=== PATIENT | male | born 1955 | race Caucasian/White ===

== ENCOUNTER → 2022-02-17 14:32 | Outpatient (BNVA) | payer OTHER, SELFPAY | PROVIDERS: Family Provider Family Medicine; PCP Family Medicine; Visit Provider Emergency Medicine | DX: J11.1 Influenza due to unidentified influenza virus with other respiratory manifestations (principal); J18.9 Pneumonia, unspecified organism | CPT/HCPCS: 87400 ==

== ENCOUNTER → 2022-09-17 08:11 | Outpatient (BNVA) | payer MEDICARE, SELFPAY | PROVIDERS: Family Provider Family Medicine; PCP Family Medicine; Referring Provider Dermatology; Visit Provider Specialist | DX: M16.12 Unilateral primary osteoarthritis, left hip (principal) | CPT/HCPCS: 73502; 99204 ==

== ENCOUNTER 2022-10-02 06:43 | Outpatient (CLI) | payer MEDICARE, SELFPAY ==
--- NOTE | 2022-10-02 07:15 | MR_ITS ---
WS: [id number] EXAMINATION: MR hip LT wo con* [id number] ORDER DATE: 10/02/2022 7:17 AM COMPARISON: None. HISTORY: left hip pain CONTRAST: None. TECHNIQUE: Coronal STIR of the Pelvis. Coronal proton density, coronal T1, axial T2 fat sat, axial T1 , sagittal T2 fat sat, and sagittal T1 performed of the hip. FINDINGS: Advanced osteoarthritis LEFT hip with oufk-zz-xaib articulation. Subchondral edema involving the LEFT acetabulum and LEFT femoral head with subchondral cystic change. Xlou-ox-vsha articulation. Associat ed subchondral sclerosis. No evidence of avascular necrosis or femoral head collapse. No significant joint effusion. Trace fluid in the LEFT trochanteric bursa. Normal visualized pubic rami. Moderate degenerative arthritis RIGHT hip. No significant edema in the RIGHT femoral head or acetabulum. Small amount of fluid in the RIGHT iliopsoas bursa. Degenerative arthritis LEFT sacroiliac joint with a small amount of periarticular edema. MR/MR hip LT wo con* [id number] IMPRESSION: 1. Advanced degenerative arthritis LEFT hip with rktn-ns-vuhl articulation and subchondral sclerosis. 2. Subchondral cystic change involving the LEFT femoral head and acetabulum w ith associated edema. 3. Moderate degenerative narrowing RIGHT hip. Fluid in the RIGHT iliopsoas bur sa. 4. Small amount of degenerative edema adjacent to the LEFT sacroiliac joint. 5. No other acute findings.
== END 2022-10-02 06:44 | disposition home or self-care (01) ==
LOC: RAD 06:47
PROVIDERS: PCP Family Medicine; Visit Provider Specialist
DX: M25.552 Pain in left hip (principal); M16.12 Unilateral primary osteoarthritis, left hip
CPT/HCPCS: 73721

== ENCOUNTER → 2022-10-29 09:25 | Outpatient (BNVA) | payer MEDICARE, SELFPAY | PROVIDERS: PCP Family Medicine; Visit Provider Specialist | DX: Z01.818 Encounter for other preprocedural examination (principal); M16.12 Unilateral primary osteoarthritis, left hip | CPT/HCPCS: 99214 ==

== ENCOUNTER → 2022-11-18 09:40 | Outpatient (BNVA) | payer MEDICARE, SELFPAY | PROVIDERS: PCP Family Medicine; Visit Provider Clinical Nurse Specialist Adult Health | DX: Z01.818 Encounter for other preprocedural examination (principal); Z86.39 Personal history of other endocrine, nutritional and metabolic disease; M16.12 Unilateral primary osteoarthritis, left hip | CPT/HCPCS: 80053; 81000; 85025 ==

== ENCOUNTER → 2022-11-19 14:54 | Outpatient (BNVA) | payer MEDICARE, SELFPAY | PROVIDERS: PCP Family Medicine; Visit Provider Specialist | DX: M16.12 Unilateral primary osteoarthritis, left hip (principal) | CPT/HCPCS: 99214 ==

== ENCOUNTER 2022-12-02 15:21 | Observation (INO) | payer MEDICARE, SELFPAY ==
[2022-12-01 10:29] VITALS: BMI 25.8
[2022-12-02] VITALS (39 sets, daily range): BP systolic 83–149; BP diastolic 39–89; PULSE 57–91; RESP 10–24; TEMP 36.1–36.6; O2SAT 90–100
[2022-12-02] MEDS: sodium chloride 0.9% 1,000 ML 30 ML IV (10:45)
[2022-12-02] MEDS: acetaminophen 1,000 MG/100 ML PIGGYBACK 400 MG IV (10:45)
[2022-12-02] MEDS: CELEcoxib 200 mg Capsule 400 MG PO (10:46)
[2022-12-02] MEDS: gabapentin 300 mg Capsule PO (10:46)
--- NOTE | 2022-12-02 12:28 | ANES.PREANE2 ---
Pre-Anesthetic Assessment Height/Weight: Height 1.75 m Weight 79.379 kg Temp Pulse Resp BP Pulse Ox O2 Del Method 97 F L 62 18 149/89 97 Room Air 12/02/22 10:35 12/02/22 10:35 12/02/22 10:35 12/02/22 10:35 12/02/22 10:35 12/02/22 10:38 Operation Date: 12/02/22 11:10 Proposed Procedures p LEFT TOTAL HIP ARTHROPLASTY 98938,M16.9(Left) - Flor Doyle MD Familial anesthetic complications: none Was Beta Donald taken within 24 hours: N/A Was Clonidine taken within 24 hours: N/A Last intake: Intake Last Liquid Date 12/01/22 Last Liquid Time 23:30 Last Solid Date 12/01/22 Last Solid Time 21:00 Social No alcohol and No tobacco Exam alert, oriented x 3, clear to auscultation bilaterally and regular rate & rhythm Airway Submandibular: within normal limits Cervical ROM: within normal limits Mallampati: Class II Dentition: chipped Metabolic Hyperlipidemia Musc/sk Osteoarthritis/DJD Anesthetic Plan ASA status: 2 Anesthesia: Regional (specify below) (SAB) Medications/Allergies Home Medications Medication Instructions Recorded Confirmed Last Taken Type meloxicam 15 mg tablet 15 mg PO DAILY #30 tabs 10/29/22 12/01/22 11/24/22 Rx Allergies Allergy/AdvReac Type Severity Reaction Status Date / Time No Known Allergies Allergy Verified 11/19/22 15:09 Current Medications Generic Name Dose Route Start Last Admin Trade Name Freq PRN Reason Stop Dose Admin Sodium Chloride 1,000 mls @ 30 mls/hr 12/02/22 10:30 12/02/22 10:45 Sodium Chloride 0.9% IV 12/03/22 10:29 30 mls/hr .Q24H ANDREA Administration PFSH Anesthesia Medical History Hx of hyperlipidemia hx in past with red meat consumption but it improved when he changed his diet. Surgical History Hx of shoulder surgery left and right Hx of wisdom tooth extraction Family History Denies family history of Clotting disorder Anesthesia complication Bleeding disorder Social History Smoking and tobacco status: former smoker Quit status (tobacco): has quit using tobacco Former quit date comment: quit in his 20s Alcohol intake: current Alcohol intake frequency: holidays/special occasions only Data Anesthesia Cardiac Studies: No Data to Display
--- NOTE | 2022-12-02 12:35 | W.PM.OPSUD ---
Surgery/Procedure H&P Update DATE OF PROCEDURE: December 02, 2022 DATE H&P PERFORMED: 11/18/22 H&P UPDATE INFORMATION: I have reviewed H&P completed within last 30 days, I have examined patient prior to procedure, No changes to prior documentation and H&P is in [facility] on date indicated PLANNED PROCEDURE: Operation Date: 12/02/22 11:10 Proposed Procedures p LEFT TOTAL HIP ARTHROPLASTY 94040,M16.9(Left) - Flor Doyle MD Related Problem List Diagnoses (1) Primary osteoarthritis of left hip:
[2022-12-02] MEDS: ceFAZolin 2,000 MG in sodium chloride 0.9% (plus) 50 ML 100 MG IV ×2 (12:41→20:27)
[2022-12-02] MEDS: vancomycin 1,000 MG SDV 1000 MG INTRA-ARTI (13:38)
[2022-12-02] MEDS: ceFAZolin 1,000 mg SDV 1000 MG IRRIGATION (13:38)
--- NOTE | 2022-12-02 15:38 | XR_ITS ---
WS: [id number] Exam: XR pelvis 1-2V* [id number] Date/Time of Exam: 12/02/2022 3:48 PM Reason For Exam: S/P NANDA Comparison 09/17/2022. A total of the LEFT hip prosthesis is noted. Postoperative changes in the adjacent soft tissues. IMPRESSION: 1. LEFT total hip replacement.
--- NOTE | 2022-12-02 16:02 | ANE.PACU2 ---
Inpatient post-anesthesia follow up: Airway intact: Yes Vital signs: Temperature 97 F Pulse Rate 62 Respiratory Rate 18 Blood Pressure 149/89 Pulse Oximetry 97 Oxygen Delivery Me thod Room Air Oxygen Flow Rate Fraction of Inspir ed Oxygen Hydration adequate: Yes Nausea and vomiting: No Pain level: 3 Mental status: Baseline
[2022-12-02] MEDS: fentaNYL 50 mcg/mL INJ 2mL IVP (16:05)
--- NOTE | 2022-12-02 16:08 | PM.OP ---
Operative Report Date of procedure: December 02, 2022 Pre-op diagnosis: Severe degenerative osteoarthritis of the left hip Post-op diagnosis: Severe degenerative osteoarthritis of the left hip Post-op findings: Severe degenerative osteoarthritis with large labrum, significant joint fluid, and deformity of the femoral head. Procedure done: Left total hip arthroplasty Implants: The [place] total hip system with a size 52 mm by E alpha code Trident II Tritanium acetabular shell with an MDM liner size 42 mm inner diameter by E alpha code.? A size 6 Accolade II 127? neck angle hip stem with a size 28 mm x +0 mm femoral head and a mu-ism MDM X3 insert size 42E Specimens removed/disposition: Femoral head, disposed of Surgeon: Flor Doyle MD Subsystems Engineer: [facility] operating room technicians Anesthesia: Spinal (With MAC, ASA 2) Estimated blood loss (mL): 200 IV fluids (mL): 1,500 Urine output (mL): 300 Complications: None Findings: Severe degenerative osteoarthritis with large labrum, significant joint fluid, and deformity of the femoral head. Condition: stable Disposition: PACU (Then return to floor for postoperative rehabilitation and pain management) Brief History: This 67 year old male patient presents today for same-day left total hip arthroplasty. He states his pain is constant daily. He explains he is unable to perform activities of daily living that he used to be able to perform. He states he is unable to ambulate up or down steps. He states he is unable to ambulate long distances. He explains his pain prevents him from laying flat in bed, and he states he has to sleep in a chair. He points to his groin area as to where his pain is located. He denies any prior treatment for his left hip. While in the office, questions were answered and consents were signed for left total hip arthroplasty. Procedure: Patient was brought to the operating theater.? He was transferred to the operating room table and subsequently administered a spinal anesthesia with MAC, ASA 2.? Following administration of adequate anesthesia, the patient was placed in full lateral position and held in position with a pegboard.? The patient's left lower extremity was then prepped and draped in usual fashion utilizing DuraPrep.? It was draped free.? Following prepping and draping, a surgical pause was performed.? At the time of surgical pause, we identified the site and side of surgery.? We also identified the patient and preoperative surgical markings.?Confirmation was made of equipment availability.? Additionally, the patient's preoperative IV antibiotic, Ancef 2 g, and TXA administration was confirmed as well.? X-rays were also reviewed. Following the surgical pause, an incision was made centering over the patient's greater trochanter continuing proximally and distally as necessary to allow access to the hip joint.? Dissection continued through skin and soft tissues using a scalpel, and hemostasis was obtained using electrocautery. The tensor fascia glo was identified and incised longitudinally but there was minimal fascial component to the tensor tissues.? Sciatic nerve was identified and protected throughout the surgical procedure.? A Charnley U retractor was placed after the tensor fascia glo had been incised longitudinally, and the sciatic nerve had been identified.? The hip was internally rotated, and the piriformis muscle was identified and tagged. Piriformis muscle along with the remaining short external rotators were then incised from the posterior aspect of the hip joint.? These were retracted posteriorly.? The capsule was entered in a T-type fashion with the edges being tagged, and subsequently the hip was dislocated.? There was very thickened labrum as well.? This was excised with further excision accomplished once the femoral head was removed.? Following hip dislocation, a femoral neck osteotomy was accomplished in the appropriate position.? The head was measured, but it was quite deformed.? Subsequently, it was disposed of.? We then evaluated the acetabulum. The femur was retracted anteriorly.? Soft tissues were retracted, and the labrum was removed.? We then began reaming.? Once the femoral head was removed, there was noted to be significant loss of cartilage over the head with the previously noted deformity and within the acetabulum.? We reamed to a size 51 to allow for a size 52 acetabular shell.? The acetabulum was impacted into position.? The MDM liner was then impacted into position with care being taken to assure it seated appropriately.? It was noted that the acetabulum matched the bony anatomy.? The cup was noted to seat nicely and had good fixation upon impact. Attention was directed to the proximal femur.? The proximal femur was lifted out of the wound.? A canal finder was passed after the box chisel.? The reamer was used to lateralize.? We then began broaching. We broached sequentially and had excellent fit and fill with the size 6 broach. ? A trial reduction was attempted with a +0 mm femoral head.? With this construct, the hip was stable, and leg length was felt to be equal.? With this in place, we had the above stabilities.? This was felt to be excellent stability. Therefore, trial components were removed after the hip was dislocated.? The size 6 Accolade II 127? neck angle stem was impacted into position without difficulty and onto this was placed a +0 mm x 28 mm femoral head which had been assembled into the MDM insert size 42E.? With a +0 mm femoral head, we had the above-noted stability.? The stem was noted to seat nicely prior to placement of the femoral head.? The wound was copiously irrigated with 20 mL of Betadine and 500 mL of normal saline mixed together.? Subsequently, we suctioned this out and irrigated the wound copiously with lactated Ringer's.? At this time, with all components in appropriate position, the hip was reduced.? Following reduction of the prosthesis once again, we confirmed the stability of the hip.? Leg lengths were also felt to be satisfactory. Being satisfied with the prosthesis, attention was directed to closure.? Closure was accomplished with 0 Vicryl in the capsular tissues.? Piriformis was reattached with 0 Vicryl as well.? Tensor fascia glo was closed with 0 Vicryl in an interrupted fashion.? The subcutaneous tissues were closed with 2-0 Monocryl.? Vancomycin powder and a Gelfoam thrombin mixture was placed into the wound as well.? The skin was closed with a running 4-0 Monocryl followed by Dermabond Prineo followed by OpSite.? The patient was placed in an abduction pillow.? She was returned the Recovery Room in a satisfactory condition and will be discharged to the floor for postoperative rehabilitation and pain management.? There were no complications or specimens. Related Problem List Diagnoses (1) Primary osteoarthritis of left hip:
[2022-12-02] MEDS: ePHEDrine 50 mg/mL Inj 25 MG IM (16:35)
[2022-12-02] MEDS: albumin 12.5 GM/250 ML VIAL IV (16:44)
[2022-12-02] MEDS: HYDROmorphone 1 mg/mL INJ 1 mL 0.5 MG IVP ×3 (16:57→17:41)
--- NOTE | 2022-12-02 17:05 | PC.NURSE ---
1700 - Dr Palafox in PACU to consult pt per Dr Doyle order - aware of pts BP and pain rating
--- NOTE | 2022-12-02 17:18 | ECG_ITS ---
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 Measurements Intervals Page Rate: 67 P: 66 NE: 157 QRS: -31 QRSD: 86 T: 50 QT: 420 QTc: 444 Interpretive Statements SINUS RHYTHM LEFT AXIS DEVIATION [QRS AXIS < -30] No previous ECG available for comparison Electronically Signed On 12-02-2022 17:56:47 CDT by Kimo Juan M.D. [email or web address] [id number] f
--- NOTE | 2022-12-02 17:20 | PC.NURSE ---
6724 - DR GARRETT NOTIFIED OF PTS INCREASE IN PAIN WITH HYPOTENSION - ORDERS GIVEN TO GIVE DILAUDID 2MG IVP Q 15 MINUTES
--- NOTE | 2022-12-02 17:24 | P.CONIM_ITS ---
Providers/Reason For Consult Consulting Physician/Specialty*: Primary medicine Reason for Consult*: Intractable pain, fluctuating blood pressures Attending Physician: Flor Doyle MD Primary Care Provider: Freddy Gilbert DO History of Present Illness History of Present Illness Serjio Elise is a 67 year old male with no significant past medical history, presents to [facility] who resents to [facility] for left hip arthroplasty, intraoperatively, patient had low blood pressures, postoperatively, patient is now having elevated blood pressures, with intractable pain, during my evaluation, blood pressures were 110s over 60s, he was alert oriented x3, complaining of severe left hip pain, denies any chest pain, no palpitations no headache, no blurry vision, he is able to move his left lower extremity, DP PT pulses palpable, no evidence of mottling, no evidence of overlying skin changes, denies any shortness of breath, no abdominal pain, telemetry monitoring shows normal sinus rhythm he is on room air he was given half a milligram of Dilaudid, but continued to have pain, so was given another half a milligram of Dilaudid, currently is resting a bit more comfortably, blood pressures 110s over 60s, still having pain complaints, so I have ordered at 1000 mg IV Tylenol he is already received 400 mg of Celebrex and try to avoid Toradol, currently getting a 500 cc bolus, denies any chest pain, no significant cardiovascular history Review of Systems Const: Denies: fever(s) Card: Denies: chest pain Resp: Denies: dyspnea Musc: Reports: extremity pain Medications/Allergies Home Medications Medication Instructions Recorded Confirmed Last Taken Type meloxicam 15 mg tablet 15 mg PO DAILY #30 tabs 10/29/22 12/01/22 11/24/22 Rx Allergies Allergy/AdvReac Type Severity Reaction Status Date / Time No Known Allergies Allergy Verified 11/19/22 15:09 Current Medications Generic Name Dose Route Start Last Admin Trade Name Freq PRN Reason Stop Dose Admin Fentanyl 50 mcg 12/02/22 12:25 12/02/22 16:05 Fentanyl 50 Mcg/Ml Inj 2ml IVP 12/03/22 12:25 50 mcg Q5M PRN Administration Pain level 6-10 PACU Phase I Hydromorphone HCl 0.5 mg 12/02/22 12:25 12/02/22 17:08 Hydromorphone 1 Mg/Ml Inj 1 Ml IVP 12/03/22 12:25 0.5 mg Q10M PRN Administration Pain level 7-10 PACU Phase I Sodium Chloride 1,000 mls @ 30 mls/hr 12/02/22 10:30 12/02/22 10:45 Sodium Chloride 0.9% IV 12/03/22 10:29 30 mls/hr .Q24H ANDREA Administration Albumin Human 12.5 gm in 250 mls @ 300 mls/hr 12/02/22 16:41 12/02/22 16:44 Albumin IV 12/02/22 17:30 300 mls/hr ONCE ONE Administration PFSH Acute PFSH: Medical History Hx of hyperlipidemia hx in past with red meat consumption but it improved when he changed his diet. Surgical History Hx of shoulder surgery left and right Hx of wisdom tooth extraction Family History Denies family history of Clotting disorder Anesthesia complication Bleeding disorder Social History Smoking and tobacco status: former smoker Quit status (tobacco): has quit using tobacco Former quit date comment: quit in his 20s Alcohol intake: current Alcohol intake frequency: holidays/special occasions only Vitals/I&O/Wt Last Vital Signs Temp 97 F L 12/02/22 10:35 Pulse 67 12/02/22 17:22 Resp 22 H 12/02/22 17:22 BP 115/44 12/02/22 17:22 Pulse Ox 100 12/02/22 17:22 O2 Del Method Room Air 12/02/22 17:22 12/02/22 12/02/22 12/02/22 06:59 14:59 22:59 Intake Total 260 / 260 850 / 1110 Output Total 302 / 302 Balance 260 / 260 548 / 808 Weight last 48 hrs Weight 79.379 kg Physical Exam Const: COMMON NORMALS: no acute distress and patient oriented x3 Resp: COMMON NORMALS: normal respiratory effort, No retractions, No use of accessory muscles and clear to auscultation bilaterally AUSCULTATION: clear to auscultation bilaterally Cardio: COMMON NORMALS: regular rate, regular rhythm, S1 normal heart sound present and S2 normal heart sound present RATE: regular rate RHYTHM: regular rhythm HEART SOUNDS: S1 normal heart sound present and S2 normal heart sound present GI: COMMON NORMALS: Normal to inspection, nondistended, normoactive bowel sounds present and non-tender Extremity: COMMON NORMALS: no pedal edema OTHER: DP PT pulses palpable bilateral lower extremities, no overlying skin changes, to moderately Neuro: COMMON NORMALS: patient oriented x3, CN's II-XII intact bilaterally and moves all extremities Psych: COMMON NORMALS: mental status grossly normal Urinary Catheter Management: Zacarias: Cath Placed During This Visit: yes Urinary Catheter Date of Insertion: 12/02/22 Urinary Catheter Time of Insertion: 13:00 A&P Assessment and plan (1) Primary osteoarthritis of left hip: (2) S/P total left hip arthroplasty: Plan - Pain control -Continue oxycodone -Dilaudid 1 mg every 6 hours as needed for breakthrough pain -1 dose of IV Tylenol -Continue IV fluids at 100 cc an hour -Patient had fluctuating blood pressures in the OR ordered CBC, CMP, EKG -Telemetry monitoring -Monitor blood pressures closely -Full code -Aspirin for DVT prophylaxis Consult Attestations Medical Necessity Statement: Patient requires hospitalization status post left hip arthroplasty, now with fluctuating blood pressures, intractable pain Coding Level of Care Code Acute Code for Chg Fwd Diagnoses Primary osteoarthritis of left hip M16.12 S/P total left hip arthroplasty Z96.642
--- NOTE | 2022-12-02 17:27 | PC.NURSE ---
Assumed care of patient
[2022-12-02] MEDS: acetaminophen 1,000 MG/100 ML PIGGYBACK 200 MG IV (17:28)
--- NOTE | 2022-12-02 17:36 | PC.NURSE ---
Patient stated he cannot lay in a bed. Stated he has not laid in a bed with his leg straight in a very long time. Stated he had an MRI and had to lay flat for 20 minutes and it about killed him. POST HIP PRECAUTIONS REVIEWED WITH PATIENT. Dr Palafox notified. Stated Dr. Box;;dasha would need to alter activity restrictions. Call placed to Dr. Doyle. Per Dr. Box;;y: head of bed can be 30 degrees and hips can be adjusted in bed no higher than 90 degrees.
[2022-12-02 17:56] LABS: Basophils # 0.1 10^3/uL (0.0-0.1); Basophils % 0.3 %; Eosinophils % 0.2 %; Hematocrit 38.3 % (37-53); Lymphocytes # 2.4 10^3/uL (0.8-4.8); Lymphocytes % 14.4 %; Mean Corpuscular HGB Conc 32.6 g/dL (30-55); Mean Corpuscular Hemoglobin 32.2 pg (27-33); Mean Corpuscular Volume 98.7 fl (82-101); Mean Platelet Volume 9.5 fL (7.4-10.4); Monocytes # 0.9 10^3/uL (0.2-0.9); Monocytes % 5.2 %; Neutrophils # 13.08 10^3/uL (1.8-7.7); Neutrophils % 79.4 %; Nucleated Red Blood Cells % 0 %; Platelet Count 219 10^3/cmm (157-399); Red Blood Count 3.88 10^6/uL (3.85-5.65); Red Cell Distribution Width 12.4 % (12.1-15.1); White Blood Count 16.49 10^3/uL (3.29-11.43)
[2022-12-02 18:08] LABS: Alanine Aminotransferase 27 U/L (0-41); Albumin Level 3.8 g/dL (3.5-5.2); Alkaline Phosphatase 63 U/L (40-130); Aspartate Amino Transferase 29 U/L (0-40); Blood Urea Nitrogen 16 mg/dL (8-23); Carbon Dioxide 21 mmol/L (22-29); Chloride 106 mmol/L (98-107); Creatinine Clr Calc Pharmacy 94.0022; Globulin 2.1 g/dL (1.3-4.6); Glomerular Filtration Rate 96.4 mL/min (90-130); Glucose 115 mg/dL (65-115); Magnesium 1.8 mg/dL (1.7-2.3); Osmolality Calculated 288 mOsm/kg (285-295); Sodium 138 mmol/L (136-145); Total Bilirubin 1.4 mg/dL (0.15-1.2); Total Protein 5.9 g/dL (6.6-8.7)
--- NOTE | 2022-12-02 18:20 | PC.NURSE ---
Patient was transferred to floor with pain rating 4-5. Stated the hip adjustment improved the pain a lot.
[2022-12-02] MEDS: sodium chloride 0.9% 1,000 ML 100 ML IV (18:46)
[2022-12-02] MEDS: ondansetron 2 mg/ML SDV 2 mL 4 MG IVP (19:17)
[2022-12-02] MEDS: CELEcoxib 200 mg Capsule PO (20:27)
[2022-12-02] MEDS: chlorhexidine gluconate 0.12% Btl 473 mL 30 ML MUCOUS MEM (20:30)
[2022-12-02] MEDS: oxyCODONE 5 mg IR Tab/Cap PO (23:22)
[2022-12-03] VITALS (7 sets, daily range): BP systolic 99–125; BP diastolic 59–69; PULSE 74–92; RESP 18–22; TEMP 36.4–36.8; O2SAT 96–98
--- NOTE | 2022-12-03 02:30 | PC.NURSE ---
Assumed pt care at 0100, report received from MADHAV Fregoso.
[2022-12-03] MEDS: ceFAZolin 2,000 MG in sodium chloride 0.9% (plus) 50 ML 100 MG IV ×2 (04:42→11:14)
[2022-12-03] MEDS: sodium chloride 0.9% 1,000 ML 100 ML IV (04:42)
[2022-12-03 04:56] LABS: Basophils % 0.1 %; Eosinophils % 0.1 %; Hematocrit 33.9 % (37-53); Lymphocytes # 1.4 10^3/uL (0.8-4.8); Lymphocytes % 14.8 %; Mean Corpuscular HGB Conc 33.6 g/dL (30-55); Mean Corpuscular Volume 95.2 fl (82-101); Mean Platelet Volume 9.1 fL (7.4-10.4); Monocytes # 0.8 10^3/uL (0.2-0.9); Monocytes % 8.2 %; Neutrophils # 7.39 10^3/uL (1.8-7.7); Neutrophils % 76.6 %; Nucleated Red Blood Cells % 0 %; Platelet Count 209 10^3/cmm (157-399); Red Blood Count 3.56 10^6/uL (3.85-5.65); Red Cell Distribution Width 12.4 % (12.1-15.1); White Blood Count 9.65 10^3/uL (3.29-11.43)
[2022-12-03 05:20] LABS: Anion Gap 11.6 (5-19); Blood Urea Nitrogen 19 mg/dL (8-23); Carbon Dioxide 24 mmol/L (22-29); Chloride 106 mmol/L (98-107); Creatinine Clr Calc Pharmacy 94.0022; Glomerular Filtration Rate 112.5 mL/min (90-130); Glucose 123 mg/dL (65-115); Osmolality Calculated 288 mOsm/kg (285-295); Potassium 4.6 mmol/L (3.5-5.1); Sodium 137 mmol/L (136-145)
[2022-12-03] MEDS: oxyCODONE 5 mg IR Tab/Cap PO ×2 (06:25→10:05)
[2022-12-03] MEDS: acetaminophen 500 mg Tablet 1000 MG PO (06:26)
--- NOTE | 2022-12-03 09:47 | PC.CHAP ---
Pastoral Care Encounter/Spiritual Assessment Type of Contact [] Declined craft manager visit [] Patient/Family/Request visit [] Outpatient visit [] Follow-up visit [] Physician referral [] Code/Alert [x] Routine visit [] Staff referral [] Actively dying [] Patient sleeping [] Family support [] [] Out of room [] Palliative care [] [] Receiving care in room [] Pre-surgical visit [] Trauma [] Long length of stay [] ICU visit [] Other: Relational/Emotional Strength [x] Patient feels connected with others/family/visitors/staff [] Distress [] Loneliness/isolation [] Abandonment Spirituality of Patient [] Person of Marcia [] Attends Yazidi of their Marcia [] Believes in Prayer [] Reads Bible or Tenriism materials [] There are Spiritual issues to be addressed Desktop Support Consultant Interventions [x] Prayer [x] Active listening [x] Non-anxious presence [] Spiritual/emotional support [] Crisis/trauma care [] Spiritual counseling [] Bereavement support [] Provided bereavement packet [] Provided Bible/devotional materials [] Provided toy/stuffed animal, coloring book to patient or family member [] Provided Communion [] Anointing/[place] [] Salvation [] Completed spiritual assessment [] Other: Impact on Illness or Injury [] Angry [] Fearful [] Anxious [] Often cries [] Exhaustion [] Unable to work [] Unable to attend mandaen [] Unable to walk/stand [] Unable to read [] Unable to drive [] Unable to eat/drink [] Unable to sleep [] Unable to be with family [] Patient intubated [] Other: Summary Time spent with patient 10 min
[2022-12-03] MEDS: CELEcoxib 200 mg Capsule PO (09:59)
[2022-12-03] MEDS: calcium carbonate 500 mg Chew Tablet 1000 MG PO (09:59)
[2022-12-03] MEDS: iron polysaccharide complex 150 mg Capsule PO (09:59)
[2022-12-03] MEDS: cholecalciferol (vitamin D3) 1,000 unit Tablet 1000 UNIT PO (09:59)
[2022-12-03] MEDS: multivitamin therapeutic Tablet 1 TAB PO (09:59)
[2022-12-03] MEDS: aspirin 325 mg EC Tablet PO (09:59)
[2022-12-03] MEDS: chlorhexidine gluconate 0.12% Btl 473 mL 30 ML MUCOUS MEM (10:00)
[2022-12-03] MEDS: mupirocin oint 22 gm 1 APPLIC NASAL (10:00)
--- NOTE | 2022-12-03 10:49 | PM.PN ---
Subjective Subjective: Patient was seen this morning, he has worked with physical therapy, he tells me that he continues to have pain but is well controlled with oxycodone, denies any fevers, no chills, Zacarias catheter removed he has not urinated yet, but he plans to urinate again just a bit, no bowel movement, no abdominal pain, no nausea, no vomiting, no chest pain, no shortness of breath, he is wondering when he could go home, Vitals/I&O/Wt Last Vital Signs Temp 97.5 F L 12/03/22 07:29 Pulse 74 12/03/22 07:29 Resp 18 12/03/22 10:05 BP 99/59 12/03/22 07:29 Pulse Ox 96 12/03/22 10:05 O2 Del Method Room Air 12/03/22 07:29 O2 Flow Rate 2 12/03/22 01:55 12/02/22 12/03/22 12/03/22 22:59 06:59 14:59 Intake Total 1749 / 2009 1733.333 / 3743.333 530 / 530 Output Total 602 / 602 300 / 902 Balance 1148 / 1408 1433.333 / 2841.333 530 / 530 Physical Exam Const: COMMON NORMALS: no acute distress and patient oriented x3 Resp: COMMON NORMALS: normal respiratory effort, No retractions, No use of accessory muscles and clear to auscultation bilaterally AUSCULTATION: clear to auscultation bilaterally Cardio: COMMON NORMALS: regular rate, regular rhythm, S1 normal heart sound present and S2 normal heart sound present RATE: regular rate RHYTHM: regular rhythm HEART SOUNDS: S1 normal heart sound present and S2 normal heart sound present GI: COMMON NORMALS: Normal to inspection, nondistended, normoactive bowel sounds present and non-tender Extremity: COMMON NORMALS: no pedal edema Neuro: COMMON NORMALS: patient oriented x3 Psych: COMMON NORMALS: mental status grossly normal Urinary Catheter Management: Zacarias: Cath Placed During This Visit: yes, but has since been removed by the nurse Reason for Continuing Indwelling Catheter: Decision to DC Catheter Urinary Catheter Date of Insertion: 12/02/22 Urinary Catheter Time of Insertion: 13:00 Date Urinary Catheter Removed: 12/03/22 Time Urinary Catheter Discontinued: 06:30 Data 12/03/22 04:35 12/03/22 04:35 A&P Assessment and plan (1) Primary osteoarthritis of left hip: (2) S/P total left hip arthroplasty: Plan We will likely discharge today, aspirin 325 for DVT prophylaxis, oxycodone to be used sparingly for pain, do not drive or operate machinery or drink will take indications, follow-up with Dr. Rueda as outpatient Attestations Medical Necessity Statement*: Patient will be discharged after hip arthroplasty Diagnoses Primary osteoarthritis of left hip M16.12 S/P total left hip arthroplasty Z96.642
--- NOTE | 2022-12-03 13:18 | P.DS_ITS ---
Discharge Providers Date of Admission: 12/02/22 15:21 Date of Discharge: December 03, 2022 Attending Provider at Admission: Flor Doyle MD Attending Provider at Discharge: Flor Doyle MD Consults: Dr. Deven Palafox Primary Care Provider: Freddy Gilbert DO Diagnoses at Discharge Discharge Diagnosis (1) S/P total left hip arthroplasty: Status: Acute Permanent problem details: Date of procedure: December 02, 2022 Diagnosis: Severe degenerative osteoarthritis of the left hip Post-op findings: Severe degenerative osteoarthritis with large labrum, significant joint fluid, and deformity of the femoral head. Procedure done: Left total hip arthroplasty Implants: The Deepa total hip system with a size 52 mm by E alpha code Trident II Tritanium acetabular shell with an MDM liner size 42 mm inner diameter by E alpha code. A size 6 Accolade II 127? neck angle hip stem with a size 28 mm x +0 mm femoral head and a presybeterian MDM X3 insert size 42E (2) Primary osteoarthritis of left hip: Status: Resolved Reason for Visit Reason for Visit: 23230 M16.9 Brief History: This 67 year old male patient presents today for same-day left total hip arthroplasty. He states his pain is constant daily. He explains he is unable to perform activities of daily living that he used to be able to perform. He states he is unable to ambulate up or down steps. He states he is unable to ambulate long distances. He explains his pain prevents him from laying flat in bed, and he states he has to sleep in a chair. He points to his groin area as to where his pain is located. He denies any prior treatment for his left hip.? While in the office, questions were answered and consents were signed for left total hip arthroplasty. Hospital Course Hospital Course Patient was admitted under observation status following same-day surgery for left total hip arthroplasty. The patient tolerated the procedure well and at the time of discharge, he was doing well and was independent in ambulation. Plan is made for his discharge to home. He will have home health and will follow-up with me in the office as scheduled. Physical therapy has reviewed posterior hip precautions. Patient is comfortable with discharge plans. Physical Exam Const: COMMON NORMALS: no acute distress, average body habitus, patient oriented x3 and alert GENERAL APPEARANCE: cooperative and comfortable ORIENTATION/CONSCIOUSNESS: Yes awake HENMT: COMMON NORMALS: normocephalic and atraumatic HEAD & SCALP: normocephalic and atraumatic Eye: GENERAL EYE: appearance normal, both eyes and all related structures Chest: COMMONS NORMALS: normal inspection of the chest Resp: COMMON NORMALS: normal respiratory effort EFFORT & INSPECTION: Yes able to speak in complete sentences and Yes symmetric chest movement Extremity: LEFT LOWER EXTREMITY: Yes hip joint (There is minimal to no swelling.) Left hip: Yes inspection (Dressing is dry and intact.), Yes palpation (Minimal tenderness.), Yes ROM (Not evaluated.) and Yes neurovascular exam (Intact distally with no evidence of DVT) Neuro: COMMON NORMALS: patient oriented x3 SENSORIUM/ORIENTATION: Yes alert Psych: COMMON NORMALS: mental status grossly normal APPEARANCE: Yes grossly normal ATTITUDE: Yes calm and Yes engaged ATTENTION/CONCENTRATION: Yes attention grossly intact Skin: COMMON NORMALS: no rashes or lesions noted GENERAL SKIN EXAM: no rashes or lesions noted Urinary Catheter Management: Zacarias: Cath Placed During This Visit: yes, but has since been removed by the nurse Reason for Continuing Indwelling Catheter: Decision to DC Catheter Urinary Catheter Date of Insertion: 12/02/22 Urinary Catheter Time of Insertion: 13:00 Date Urinary Catheter Removed: 12/03/22 Time Urinary Catheter Discontinued: 06:30 Discharge Data Studies Completed and Pending Completed Studies During Hospitalization Category Date Time Status XR pelvis 1-2V* [id number] Routine Exams 12/02/22 15:38 Completed Laboratory Results WBC 9.65 10^3/uL (3.29-11.43) 12/03/22 04:35 RBC 3.56 10^6/uL (3.85-5.65) L 12/03/22 04:35 Hgb 11.40 g/dL (11.27-16.99) 12/03/22 04:35 Hct 33.9 % (37-53) L 12/03/22 04:35 MCV 95.2 fl (82-101) 12/03/22 04:35 MCH 32.0 pg (27-33) 12/03/22 04:35 MCHC 33.6 g/dL (30-55) 12/03/22 04:35 RDW 12.4 % (12.1-15.1) 12/03/22 04:35 Plt Count 209 10^3/cmm (157-399) 12/03/22 04:35 MPV 9.1 fL (7.4-10.4) 12/03/22 04:35 Neut % (Auto) 76.6 % 12/03/22 04:35 Lymph % (Auto) 14.8 % 12/03/22 04:35 [place] % (Auto) 8.2 % 12/03/22 04:35 Eos % (Auto) 0.1 % 12/03/22 04:35 Baso % (Auto) 0.1 % 12/03/22 04:35 Neut # (Auto) 7.39 10^3/uL (1.8-7.7) 12/03/22 04:35 Lymph # (Auto) 1.4 10^3/uL (0.8-4.8) 12/03/22 04:35 [place] # (Auto) 0.8 10^3/uL (0.2-0.9) 12/03/22 04:35 Eos # (Auto) 0.0 10^3/uL (0.0-0.8) 12/03/22 04:35 Baso # (Auto) 0.0 10^3/uL (0.0-0.1) 12/03/22 04:35 Nucleated RBC % (auto) 0 % 12/03/22 04:35 Nucleated RBCs # 0.0 /100WBC 12/03/22 04:35 Sodium 137 mmol/L (136-145) 12/03/22 04:35 Potassium 4.6 mmol/L (3.5-5.1) 12/03/22 04:35 Chloride 106 mmol/L (98-107) 12/03/22 04:35 Carbon Dioxide 24 mmol/L (22-29) 12/03/22 04:35 Anion Gap 11.6 (5-19) 12/03/22 04:35 BUN 19 mg/dL (8-23) 12/03/22 04:35 Creatinine 0.7 mg/dL (0.7-1.2) 12/03/22 04:35 GFR Calculation 112.5 mL/min (90-130) 12/03/22 04:35 Glucose 123 mg/dL (65-115) H 12/03/22 04:35 Calculated Osmolality 288 mOsm/kg (285-295) 12/03/22 04:35 Calcium 8.0 mg/dL (8.5-10.5) L 12/03/22 04:35 Magnesium 1.8 mg/dL (1.7-2.3) 12/02/22 17:35 Total Bilirubin 1.4 mg/dL (0.15-1.2) H 12/02/22 17:35 AST 29 U/L (0-40) 12/02/22 17:35 ALT 27 U/L (0-41) 12/02/22 17:35 Alkaline Phosphatase 63 U/L (40-130) 12/02/22 17:35 Total Protein 5.9 g/dL (6.6-8.7) L 12/02/22 17:35 Albumin 3.8 g/dL (3.5-5.2) 12/02/22 17:35 Globulin 2.1 g/dL (1.3-4.6) 12/02/22 17:35 Vitals Last Vital Signs Temp 98.2 F 12/03/22 12:00 Pulse 82 12/03/22 12:00 Resp 22 H 12/03/22 12:00 BP 115/66 12/03/22 12:00 Pulse Ox 97 12/03/22 12:00 O2 Del Method Room Air 12/03/22 12:00 O2 Flow Rate 2 12/03/22 01:55 Discharge Plan Discharge Patient Disposition: Home Health Service Condition: Stable Prescriptions: New aspirin 325 mg Tablet,Delayed Release (Dr/Ec) 325 mg PO DAILY 30 Days Qty: 30 0RF Stool Softener-Laxative 8.6-50 mg Tablet 1 tab-cap PO BID 30 Days Qty: 60 0RF oxycodone 5 mg Tablet 5 mg PO Q4H PRN (Reason: Moderate Pain) 7 Days Qty: 42 0RF Continued meloxicam 15 mg tablet 15 mg PO DAILY Qty: 30 0RF Discharge Orders: Discharge Order (Routine); Ordered 12/03/22 Ordered By: Deven Palafox Referrals: [facility] [place] [facility] ([facility]) [Outside] Freddy Gilbert DO [Primary Care Provider] - 12/09/22 11:00 am Flor Doyle MD [Physician] - 12/17/22 9:00 am Discharge Diet: Advance as tolerated, Usual diet and Regular Discharge Activity: Increase activity as tolerated, Limit activity as instructed, Use walker/crutches as instructed and As per PT/OT instructions Patient Instructions: Aspirin (By mouth), Oxycodone, Rapid Release (By mouth), Precautions after Total Joint Replacement Surgery (GEN), Joint Replacement Surgery (GEN), Total Hip Replacement (GEN), Joint Replacement Stoplight, Opioid Safety Activity Restrictions/Additional Instructions: Ice to left hip. Weightbearing as tolerated. Posterior hip precautions. Ambulate with physical therapy. Discharge Attestations Time Spent in Discharge Care*: greater than 30 min Specific Discharge Activities: educating patient, documenting/other paperwork and evaluating patient/reviewing data Quality Metrics Clinical Quality Measures [ No reported AMI, CVA or VTE this stay] Coding Level of Care Code Acute Code for Chg Fwd Diagnoses S/P total left hip arthroplasty Z96.642 Primary osteoarthritis of left hip M16.12
== END 2022-12-03 14:41 | disposition home health service (06) ==
LOC: MEDSURG 15:21
PROVIDERS: Family Medicine; Admitting Provider Specialist; PCP Family Medicine; Visit Provider Specialist
PROC: (CPT 27130; principal; 2022-12-02 10:40)
DX: M16.12 Unilateral primary osteoarthritis, left hip (principal); E78.5 Hyperlipidemia, unspecified; Z87.891 Personal history of nicotine dependence
CPT/HCPCS: 27130; 36415; 51702; 72170; 80048; 80053; 83735; 85025; 93005; 97110; 97116; 97161; 97166; C1776; G0378; J0131; J0690; J1170; J2250; J2371; J2405; J2704; J3010; J3370; J7030; P9045

== ENCOUNTER → 2022-12-19 09:47 | Outpatient (BNVA) | payer MEDICARE, SELFPAY | PROVIDERS: PCP Family Medicine; Visit Provider Physician Assistant | DX: Z96.642 Presence of left artificial hip joint (principal) | CPT/HCPCS: 73502; 99024 ==

== ENCOUNTER 2023-01-06 06:00 | Outpatient (RCR) | payer MEDICARE, SELFPAY | END 2023-01-20 23:59 | disposition home or self-care (01) | LOC: MPT 06:00 | PROVIDERS: Visit Provider Specialist | DX: Z47.89 Encounter for other orthopedic aftercare (principal) | CPT/HCPCS: 97110; 97162 ==

== ENCOUNTER 2023-01-21 06:00 | Outpatient (RCR) | payer MEDICARE, SELFPAY | END 2023-01-29 23:59 | disposition home or self-care (01) | LOC: MPT 06:00 | PROVIDERS: Visit Provider Specialist | DX: Z47.89 Encounter for other orthopedic aftercare (principal) | CPT/HCPCS: 97110; 97116 ==

== ENCOUNTER → 2023-02-02 07:46 | Outpatient (BNVA) | payer MEDICARE, SELFPAY | PROVIDERS: Visit Provider Specialist | DX: Z96.642 Presence of left artificial hip joint (principal); Z09 Encounter for follow-up examination after completed treatment for conditions other than malignant neoplasm | CPT/HCPCS: 73502; 99024 ==

== ENCOUNTER → 2024-02-29 10:45 | Outpatient (BNVA) | payer MEDICARE, SELFPAY | PROVIDERS: Visit Provider Specialist | DX: M25.512 Pain in left shoulder (principal); R03.0 Elevated blood-pressure reading, without diagnosis of hypertension | CPT/HCPCS: 73030; 99214 ==

== ENCOUNTER 2024-03-04 08:32 | Outpatient (CLI) | payer MEDICARE, SELFPAY ==
--- NOTE | 2024-03-04 08:45 | MR_ITS ---
WS: [id number] MRI LEFT SHOULDER NONCONTRAST TECHNIQUE: Sagittal T2, coronal T1, T2 and proton density imaging. Axial gradient PDE imaging. CLINICAL INFORMATION: left shoulder pain COMPARISON: None. FINDINGS: Moderate to advanced arthritis AC joint with moderate downsloping acromion. Narrowing of the subacrom ial space. Subacromial subdeltoid fluid. Advanced degenerative narrowing of the glenohumeral articula tion. Evidence of prior rotator cuff repair. Cystic degenerative changes of the greater tuberosity. H igh-grade tear distal supraspinatus with tendon retraction measuring approximately 9 mm. Additional h igh-grade tear near the myotendinous junction. Chronic thinning of the infraspinatus which appears in tact distally. Teres minor appears intact. Tendinopathy subscapularis tendon which appears intact. Biceps tendon is diminutive but appears intact within the bicipital groove. Tiny intra-articular biceps tendon. MR/MR shoulder LT wo con* [id number] IMPRESSION: 1. High-grade complete tear of the distal supraspinatus with 9 mm of tendon re traction. Additional high-grade tear near the myotendinous junction. 2. Rotator cuff otherwise appears intact. 3. Tiny biceps tendon appears intact within the bicipital groove. 4. Advanced degenerative narrowing of the glenohumeral articulation. 5. Moderate to advanced arthritis AC joint with mild downsloping acromion.
== END 2024-03-04 08:33 | disposition home or self-care (01) ==
LOC: RAD 08:33
PROVIDERS: PCP Family Medicine; Visit Provider Specialist
DX: M19.012 Primary osteoarthritis, left shoulder (principal); M75.122 Complete rotator cuff tear or rupture of left shoulder, not specified as traumatic
CPT/HCPCS: 73221

== ENCOUNTER 2024-03-23 06:30 | Outpatient (RCR) | payer MEDICARE, SELFPAY | END 2024-04-22 23:59 | disposition home or self-care (01) | LOC: MPT 06:30 | PROVIDERS: Visit Provider Specialist | DX: M19.012 Primary osteoarthritis, left shoulder (principal) | CPT/HCPCS: 97110; 97140; 97162 ==

== ENCOUNTER → 2024-03-30 14:04 | Outpatient (BNVA) | payer MEDICARE, SELFPAY | PROVIDERS: PCP Family Medicine; Visit Provider Specialist | DX: M19.212 Secondary osteoarthritis, left shoulder | CPT/HCPCS: 99214 ==

== ENCOUNTER 2024-04-23 06:30 | Outpatient (RCR) | payer MEDICARE, SELFPAY | END 2024-05-03 07:06 | disposition home or self-care (01) | LOC: MPT 06:30 | PROVIDERS: Visit Provider Specialist | DX: M19.012 Primary osteoarthritis, left shoulder (principal) | CPT/HCPCS: 97110 ==

== ENCOUNTER 2025-02-07 12:37 | Emergency (ER) | payer MEDICARE, SELFPAY ==
[2025-02-07 12:48] VITALS: BP 167/97; PULSE 97; RESP 20; TEMP 36.4; O2SAT 97
[2025-02-07 13:18] LABS: Hematocrit 46.7 % (37-53); Hemoglobin 16.30 g/dL (11.27-16.99); Mean Corpuscular HGB Conc 34.9 g/dL (30-55); Mean Corpuscular Hemoglobin 32.9 pg (27-33); Mean Corpuscular Volume 94.2 fl (82-101); Nucleated Red Blood Cells % 0 %; Platelet Count 289 10^3/cmm (157-399); Red Blood Count 4.96 10^6/uL (3.85-5.65); White Blood Count 7.31 10^3/uL (3.29-11.43)
[2025-02-07 13:38] LABS: Alanine Aminotransferase 33 U/L (0-41); Albumin Level 4.6 g/dL (3.5-5.2); Alkaline Phosphatase 92 U/L (40-130); Anion Gap 16.1 (5-19); Aspartate Amino Transferase 28 U/L (0-40); Blood Urea Nitrogen 14 mg/dL (8-23); Calcium 10.0 mg/dL (8.5-10.5); Carbon Dioxide 26 mmol/L (22-29); Chloride 100 mmol/L (98-107); Globulin 3.3 g/dL (1.3-4.6); Glucose 100 mg/dL (65-115); Lipase 22 U/L (13-60); Osmolality Calculated 287 mOsm/kg (285-295); Potassium 4.1 mmol/L (3.5-5.1); Sodium 138 mmol/L (136-145); Total Protein 7.9 g/dL (6.6-8.7)
--- NOTE | 2025-02-07 13:44 | W.ED.NAVMDI ---
HPI - Nausea/Vomiting/Diarrhea General: Chief complaint: Nausea/Vomiting/Diarrhea Stated complaint: abd pain Time Seen by Provider: 02/07/25 13:44 History of Present Illness: 69-year-old male presents emergency room complaint of abdominal pain notes bloating after he eats. He said been very nauseous. He was told by his doctor he might have a gallbladder issue he is scheduled for an outpatient ultrasound states his symptoms got worse denies any medication nonheme Tums cough cramps no fever sweats or chills he has had a couple of acholic stools. Associated symtoms: Denies chest pain or dysuria Related Data Home Medications ?Medication ?Instructions ?Recorded ?Confirmed sertraline 25 mg tablet 75 mg PO DAILY 02/29/24 03/30/24 trazodone 100 mg tablet 100 mg PO DAILY 02/29/24 03/30/24 Previous Rx's ?Medication ?Instructions ?Recorded ondansetron HCl 4 mg tablet 4 mg PO Q6H PRN nausea and 02/07/25 vomiting #20 tabs pantoprazole 40 mg tablet,delayed 40 mg PO DAILY #40 tabs 02/07/25 release Allergies Allergy/AdvReac Type Severity Reaction Status Date / Time No Known Allergies Allergy Verified 03/30/24 14:22 Review of Systems Const: Denies: fever(s) or chills Card: Denies: chest pain Resp: Denies: dyspnea GI: Denies: abdominal pain : Denies: dysuria, urinary frequency or urinary urgency Musc: Denies: neck pain or back pain Skin/Breast: Denies: rash PFSH ED PFSH: Medical History Hx of hyperlipidemia hx in past with red meat consumption but it improved when he changed his diet. Surgical History Hx of wisdom tooth extraction Hx of shoulder surgery left and right Family History Denies family history of Clotting disorder Anesthesia complication Bleeding disorder Social History Smoking and tobacco/nicotine status: former use of tobacco/nicotine Quit status (tobacco/nicotine): has quit using Former quit date comment: quit in his 20s Alcohol intake: current Alcohol intake frequency: holidays/special occasions only Physical Exam Const: COMMON NORMALS: no acute distress GENERAL APPEARANCE: cooperative and comfortable ORIENTATION/CONSCIOUSNESS: Yes awake, Yes oriented to person, Yes oriented to place and Yes oriented to time HENMT: COMMON NORMALS: normocephalic, atraumatic and hearing grossly normal bilaterally HEAD & SCALP: normocephalic and atraumatic Resp: COMMON NORMALS: normal respiratory effort, No retractions, No use of accessory muscles and clear to auscultation bilaterally AUSCULTATION: clear to auscultation bilaterally Cardio: COMMON NORMALS: regular rate, regular rhythm and No murmurs present (Cardio) RATE: regular rate RHYTHM: regular rhythm GI: COMMON NORMALS: Soft to palpation and No hepatosplenomegaly present AUSCULTATION: Yes normoactive bowel sounds PALPATION: Yes Soft to palpation, No Tenderness to palpation present (GI), No Guarding due to palpation present (GI) and Yes No hepatosplenomegaly present Extremity: COMMON NORMALS: normal to inspection, capillary refill normal, no clubbing, cyanosis or edema, no calf tenderness and no pedal edema Neuro: SENSORIUM/ORIENTATION: Yes oriented to person, Yes oriented to place and Yes oriented to time Skin: COMMON NORMALS: no rashes or lesions noted GENERAL SKIN EXAM: no rashes or lesions noted Course Vital Signs: Vital signs: Vital Signs Temperature 97.6 F 02/07/25 12:48 Pulse Rate 97 02/07/25 12:48 Respiratory Rate 20 H 02/07/25 12:48 Blood Pressure 167/97 02/07/25 12:48 Pulse Oximetry 97 02/07/25 12:48 Oxygen Delivery Me thod Room Air 02/07/25 12:48 MDM - Nausea/Vomiting/Diarrhea Medical Decision Making Gallbladder ultrasound negative no acute findings. Liver functions normal T. bili slightly elevated no leukocytosis. Abdominal exam benign at this time. Discharge patient home started him on ondansetron and pantoprazole have him follow-up with his primary care doctor may need further evaluation as an outpatient. Will refer him also to general surgery for possible endoscopy. Lab Data 02/07/25 13:09 02/07/25 13:09 Radiology Impressions Gallbladder Ultrasound 02/07/25 13:49 IMPRESSION: 1. Normal gallbladder. 2. Chronic hepatocellular disease versus hepatic steatosis. 3. No intrahepatic duct dilatation. Laboratory Results WBC 7.31 10^3/uL (3.29-11.43) 02/07/25 13:09 RBC 4.96 10^6/uL (3.85-5.65) 02/07/25 13:09 Hgb 16.30 g/dL (11.27-16.99) 02/07/25 13:09 Hct 46.7 % (37-53) 02/07/25 13:09 MCV 94.2 fl (82-101) 02/07/25 13:09 MCH 32.9 pg (27-33) 02/07/25 13:09 MCHC 34.9 g/dL (30-55) 02/07/25 13:09 RDW 12.0 % (12.1-15.1) L 02/07/25 13:09 Plt Count 289 10^3/cmm (157-399) 02/07/25 13:09 MPV 8.9 fL (7.4-10.4) 02/07/25 13:09 Neut % (Auto) 60.3 % 02/07/25 13:09 Lymph % (Auto) 29.5 % 02/07/25 13:09 [place] % (Auto) 8.5 % 02/07/25 13:09 Eos % (Auto) 0.7 % 02/07/25 13:09 Baso % (Auto) 0.7 % 02/07/25 13:09 Neut # (Auto) 4.41 10^3/uL (1.8-7.7) 02/07/25 13:09 Lymph # (Auto) 2.2 10^3/uL (0.8-4.8) 02/07/25 13:09 [place] # (Auto) 0.6 10^3/uL (0.2-0.9) 02/07/25 13:09 Eos # (Auto) 0.1 10^3/uL (0.0-0.8) 02/07/25 13:09 Baso # (Auto) 0.1 10^3/uL (0.0-0.1) 02/07/25 13:09 Nucleated RBC % (auto) 0 % 02/07/25 13:09 Nucleated RBCs # 0.0 /100WBC 02/07/25 13:09 Sodium 138 mmol/L (136-145) 02/07/25 13:09 Potassium 4.1 mmol/L (3.5-5.1) 02/07/25 13:09 Chloride 100 mmol/L (98-107) 02/07/25 13:09 Carbon Dioxide 26 mmol/L (22-29) 02/07/25 13:09 Anion Gap 16.1 (5-19) 02/07/25 13:09 BUN 14 mg/dL (8-23) 02/07/25 13:09 Creatinine 0.8 mg/dL (0.7-1.2) 02/07/25 13:09 GFR Calculation 95.8 mL/min (90-130) 02/07/25 13:09 Glucose 100 mg/dL (65-115) 02/07/25 13:09 Calculated Osmolality 287 mOsm/kg (285-295) 02/07/25 13:09 Calcium 10.0 mg/dL (8.5-10.5) 02/07/25 13:09 Total Bilirubin 2.1 mg/dL (0.15-1.2) H 02/07/25 13:09 AST 28 U/L (0-40) 02/07/25 13:09 ALT 33 U/L (0-41) 02/07/25 13:09 Alkaline Phosphatase 92 U/L (40-130) 02/07/25 13:09 Total Protein 7.9 g/dL (6.6-8.7) 02/07/25 13:09 Albumin 4.6 g/dL (3.5-5.2) 02/07/25 13:09 Globulin 3.3 g/dL (1.3-4.6) 02/07/25 13:09 Lipase 22 U/L (13-60) 02/07/25 13:09 Urine Color Yellow (Yellow) 02/07/25 14:24 Urine Appearance Clear (CLEAR) 02/07/25 14:24 Urine pH 7.5 (5-7) 02/07/25 14:24 Ur Specific [place] 1.011 (1.005-1.030) 02/07/25 14:24 Urine Protein Negative (Negative) 02/07/25 14:24 Urine Glucose (UA) Negative (Normal) 02/07/25 14:24 Urine Ketones 1+ (Negative) H 02/07/25 14:24 Urine Blood Negative (Negative) 02/07/25 14:24 Urine Nitrate Negative (Negative) 02/07/25 14:24 Urine Bilirubin Negative (Negative) 02/07/25 14:24 Urine Urobilinogen 0.2 mg/dL (Negative) 02/07/25 14:24 Ur Leukocyte Esterase Negative (Negative) 02/07/25 14:24 Urine RBC 0-2 /hpf (0-2) 02/07/25 14:24 Urine WBC 0-5 /hpf (0-5) 02/07/25 14:24 Ur Squamous Epith Cells 0-5 /hpf (0-5) 02/07/25 14:24 Amorphous Sediment Not Reportable 02/07/25 14:24 Urine Bacteria None seen /hpf (NONE) 02/07/25 14:24 Hyaline Casts 0.81 /lpf 02/07/25 14:24 Hepatitis A IgM Ab Non-reactive (Nonreactive) 02/07/25 13:09 Hep Bs Antigen Non-reactive (Nonreactive) 02/07/25 13:09 Hep B Core IgM Ab Non-reactive (Nonreactive) 02/07/25 13:09 Hepatitis C Antibody Non-reactive (Nonreactive) 02/07/25 13:09 All radiology interpretation(s) finalized by discharge Discharge Plan Discharge Patient Disposition: Home Clinical Impression: Abdominal pain, Nausea & vomiting, Total bilirubin, elevated Condition: Stable Prescriptions: New ondansetron HCl 4 mg tablet 4 mg PO Q6H PRN (Reason: nausea and vomiting) Qty: 20 0RF pantoprazole 40 mg tablet,delayed release (DR/EC) 40 mg PO DAILY Qty: 40 0RF Rx Instructions: Twice daily x 10 days then daily No Action sertraline 25 mg tablet 75 mg PO DAILY trazodone 100 mg tablet 100 mg PO DAILY Discharge Orders: Discharge ED (Routine); Ordered 02/07/25 Ordered By: Sreekanth Cameron Discharge Diet: As Directed Discharge Activity: Resume usual activity Patient Instructions: Diet for Stomach Ulcers and Gastritis (ED), Abdominal Pain (ED), Opioid Safety, Pain Management, Patient Portal & David Instructions Activity Restrictions/Additional Instructions: Thank you for choosing [facility] for your healthcare needs today. It is very important that you follow up as instructed or that you return to the Emergency Department should you have concerns or if your condition changes or worsens in any way. Emergency department visits are focused on emergent conditions, in some cases you may require further evaluation on an outpatient basis. You were seen in the emergency room with complaints of abdominal discomfort difficulty and persistent nausea vomiting. Ultrasound of your liver did not show any acute cholecystitis. You did have some fatty replacement in your liver no ductal dilations. Recommend that you start on pantoprazole 1 tablet twice a day for 10 days then once daily. Gave you ondansetron to use as needed for nausea vomiting recommend bland diet avoid spicy foods fatty foods greasy foods citrus fruits tomato based products. Case management make arrangements for her to follow-up with general surgery for possible EGD. (Please note that included in your discharge packet is information concerning opioid safety and pain management. This information is given to all patients were discharged from the ER regardless of their discharge diagnosis or the medicines they usually take or are prescribed.) Print Language: Bots[place]an Coding Level of Care Code ED Social Work Administrator for Ronaldo Haddad
--- NOTE | 2025-02-07 13:49 | US_ITS ---
WS: [id number] RIGHT UPPER QUADRANT ULTRASOUND HISTORY: abd pain COMPARISON: None available. Liver: 13.3 cm in length. Normal size liver. Coarse echotexture throughout. Areas of hepatic steatosis and sparing. No intrahepatic duct dilatation. Portal Vein: Normal hepatopetal flow with monophasic waveform. Gallbladder: Normally distended gallbladder with no stones or wall thickening. CBD: 0.5 cm Pancreas: Normal size and echogenicity. Right kidney: 10.9 cm in length. Normal size kidney. Increased echogenicity from chronic medical renal disease. Aorta and IVC: Unremarkable abdominal aorta and IVC. No ascites. US/US gall bladder [id number] IMPRESSION: 1. Normal gallbladder. 2. Chronic hepatocellular disease versus hepatic steatosis. 3. No intrahepatic duct dilatation.
[2025-02-07 14:33] LABS: Glucose Urine UA Negative (Normal); Nitrate Urine Negative (Negative); Specific Gravity, Urine 1.011 (1.005-1.030)
[2025-02-07 14:38] LABS: Add Urine Microscopic? YES
[2025-02-07 15:57] LABS: Hepatitis A Antibody IgM Non-Reactive (Nonreactive); Hepatitis B Surface Antigen Non-Reactive (Nonreactive)
== END 2025-02-07 15:26 | disposition home or self-care (01) ==
PROVIDERS: Physician Assistant; Emergency Provider Family Medicine
DX: R10.9 Unspecified abdominal pain (principal); R11.2 Nausea with vomiting, unspecified; E80.7 Disorder of bilirubin metabolism, unspecified; Z87.891 Personal history of nicotine dependence; E78.5 Hyperlipidemia, unspecified
CPT/HCPCS: 36415; 76705; 80053; 80074; 81001; 83690; 85025; 99284

== ENCOUNTER → 2025-02-13 08:30 | Outpatient (BNVA) | payer MEDICARE, SELFPAY | PROVIDERS: Visit Provider Student in an Organized Health Care Education/Training Program | DX: R10.9 Unspecified abdominal pain (principal); G89.29 Other chronic pain; R03.0 Elevated blood-pressure reading, without diagnosis of hypertension | CPT/HCPCS: 99203 ==